=== PATIENT | male | born 1985 | race Caucasian/White ===

== ENCOUNTER 2018-01-11 17:36 | Inpatient (IN) | payer OTHER ==
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
[2018-01-11] MEDS ORDERED: IOPAMIDOL (ISOVUE-300) 100 ML BTL ONE (17:54)
[2018-01-11 17:58] LABS: PLATELET COUNT 294 10^3/uL (150-400)
[2018-01-11 18:17] LABS: INR 0.99 (0.83-1.16); PROTIME(PATIENT) 13.3 SEC (12.0-15.0)
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
[2018-01-11] MEDS ORDERED: POTASSIUM CL 20 MEQ TAB PO ONE (21:32)
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
--- NOTE | 2018-01-11 21:58 | ASMTTCLDSP ---
TLC Discharge Disposition Disposition: Answers: Admit Disposition Notes: Notes: Pt will be admitted to [facility] Unit Discharge Concerns/Recommendations: Notes: In consulation wit the FED MD, Dr Kristen Hadley an on-call psychiatrist, Dr. Estela Aleman both concurred that pt meets the 27-65 criteria requiiring in=pt psychiatric hositalization as pt appears to be at imminent risk to self harm due to a mental illness. Was patient given the Answers: Yes Inpatient [facility] Health Prohibited Belongings List while in the ED? For inpatient Dr Estela Aleman admission, the following psychiatrist agreed to accept patient for admission to [facility]): Type of Hold: Answers: M1/72-hour Hold Hold initiated by: Answers: Police Date Signed: 01/11/2018 09:57 PM Electronically Signed By:Tahira Salazar
[2018-01-12] MEDS ORDERED: LORazepam 0.5 MG TAB PO PRN (02:25)
[2018-01-12] MEDS ORDERED: NICOTINE POLACRILEX 2 MG GUM B PRN (02:25)
[2018-01-12] MEDS ORDERED: ACETAMINOPHEN 325 MG TAB PO PRN (02:25)
[2018-01-12] MEDS ORDERED: MAG HYDROX/AL HYDROX/SIMETH 30 ML UDCUP PO PRN (02:25)
[2018-01-12] MEDS ORDERED: MAGNESIUM HYDROXIDE 30 ML UDCUP PO PRN (02:25)
[2018-01-12] MEDS ORDERED: OLANZapine 5 MG TAB PO PRN (02:26)
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
--- NOTE | 2018-01-12 13:29 | PDMN ---
Medical Necessity Medical necessity: Pt meets inpt criteria per MD order and [facility], Major Depressive Disorder, Adult: Inpatient Care. 32 y/o admitted on M1 hold w/major depressive disorder w/suicide requiring inpt psychiatric hospitalization as pt appears to be at risk of harm to self due to mental illness.
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
[2018-01-13 06:55] VITALS: BP 111/68
--- NOTE | 2018-01-13 09:26 | ASMTBHDC ---
Notes Note: Notes: CC was unable to confirm follow up out-patient services: Follow up with: Client refused to have CC confirm out-patient intake appt with [facility]; noting, "he would like to make the appointment himself." Additional Resources: [facility] [address] This is for the initial 30 minute appt to do paperwork and Ct should bring ID, insurance card, etc. [place] office: [address] [place] [address] Mon, Wed, and Fri 8:30am-2pm. [place] office: [address], [place] [address] Mon. and Wed., 9 am-2 pm [place] office: [address] [facility] [address] [facility] (adults), [place] [address] Mon-Fri., 9 am-2 pm Date Signed: 01/13/2018 09:26 AM Electronically Signed By:Jose Tapia
--- NOTE | 2018-01-13 10:45 | ASMTBHDC ---
Notes Note: Notes: Pt. refused to sign YAZ for [facility], stating he wants to confirm he has Medicaid prior to setting up any follow up appointments. Pt. reports not wanting to have a large bill to add to his current financial issues. Pt. acknowledged he will need to make his follow up appointment for therapy after he discharges. Pt. reports he will return to living with his father and return to working at [employer] Pt. stated he can talk to his dad for support instead of his previous friends. Date Signed: 01/13/2018 10:45 AM Electronically Signed By:Katherine Judge
--- NOTE | 2018-01-13 12:59 | ASMTBHFAM ---
Notes Note: Notes: Family meeting with pt, FOC, AUTOMOTIVE PARTS MANAGER, CC and student staff. FOC stated both him and the family would like pt. to attend therapy. FOC stated " I can afford to pay for it [therapy]". Pt. stated he is "open to therapy", but shared some challenges with trusting others. Pt. stated "[I'm] not fully confident in professionals. I'm a skeptic for the right reasons". Pt. stated his father is his resource and support. FOC stated pt. will return home with him and pt's boss stated he can return to work tomorrow. Date Signed: 01/13/2018 12:58 PM Electronically Signed By:Katherine Judge
--- NOTE | 2018-01-13 15:30 | BDS ---
REASON FOR ADMISSION: From the ED note dated 01/11/2018, the patient attempted suicide by [place] his car [place] a mirtha. The patient was placed on an M1 hold due to being a danger to himself. The patient was admitted involuntarily on an M1 hold due to being a danger to himself. The patient was admitted for safety, crisis stabilization, and medication management. ADMITTING DIAGNOSIS: Major depressive disorder, single episode, severe. Cannabis use disorder, severe. ADMISSION PHYSICAL EXAM: The patient was seen by Dr. Bennett on 01/12/2018, for an internal medicine consultation for medical clearance for inpatient psychiatric hospitalization. Dr. Bennett reported he saw no medical contraindications to the patient's continued stay on the inpatient behavioral health unit or to any psychiatric medications or procedures. For further details, please refer to consultation note dated 01/12/2018. ADMISSION LABS: CBC showed a slightly elevated white blood cell count at 11.09. There was no left shift. There was predominantly elevations of neutrophils and monocytes. Coagulation revealed normal PT and PTT. Chemistry showed a low potassium on the 2nd determination of 3.1. Subsequently, potassium was normal the next morning at 4. Otherwise, renal function and electrolytes were within normal limits. Hemoglobin A1c was normal at 5. Lipid panel revealed a slightly high triglycerides at 160 and slightly high LDL at 102. The patient had a slightly low HDL at 39. TSH was suppressed mildly at 0.365. Toxicology screen in his serum was negative for ethyl alcohol and the urine was non-negative for marijuana. Negative for all other substances of abuse. MAJOR PROCEDURES OR TESTS: None. HOSPITAL COURSE: The most prominent symptoms and behaviors while the patient was here were mild depression and anxiety. Treatment modalities utilized were milieu and group therapy. The patient has improved considerably with no signs of psychiatric symptoms and no psychiatric symptoms expressed at time of discharge. The patient reports he has improved since admission. States to be in stable condition. Feels safe to discharge and he contracts for safety. Patient's response to treatment was good. There were no adverse or unexpected results of treatment. The patient was safe throughout his stay, active in treatment, engaged in groups, and was appropriate with staff and other patients. The patient met with treatment team prior to discharge to assess readiness to discharge and reviewed discharge plan. The treatment team consensus is the patient is in stable condition, has a safe discharge plan, and is ready to discharge today. CONDITION ON DISCHARGE: Patient is in stable condition and is no longer a danger to self or others, and is not gravely disabled due to mental illness. Patient is no longer in need of inpatient level of care, and can be safely and effectively treated within the community. The patients level of risk at time of discharge is low. MSE: The patient is casually dressed and with good hygiene , and looks stated age. Patient is sitting, posture is upright, and position is relaxed. Patient appears awake, alert, and responds appropriately and reasonably during interview. Patient is engaged, relates well to interviewer, and emotional facial expression is appropriate to situation and changes appropriately with topic. Patient is cooperative, makes comfortable eye contact , and movements are voluntary, deliberate, coordinated, and smooth and even with no inappropriate movements. Patient makes laryngeal sounds effortlessly and shares conversation appropriately; pace of conversation is appropriate, and stream of talking is fluent; articulation is clear and understandable; word choice is effortless and appropriate for education level; completes sentences, occasionally pausing to think; rate and volume are appropriate for interview and setting. Patient reports mood as euthymic. Patients affect is stable with full variable range, congruent with mood, and appropriate to speech and circumstances. Patient has linear and logical thinking, with no loose associations, tangential thought, thought blocking, concrete thinking, or any other signs of formal thought disorder. Patient denies suicidal and homicidal ideation, and denies hallucinations and delusions. Patient appears to be a reliable historian with sound judgement and good insight into current condition. Patient has no apparent dysfunction in recent or remote memory noted , and no evidence of gross cognitive dysfunction noted at any point during the interview. DISCHARGE DIAGNOSIS: Major depressive disorder, single episode, severe, PTSD, Cannabis use disorder, severe. CURRENT MEDICATIONS: No prescriptions provided at time of discharge. Patient to continue nicotine gum for nicotine dependence. Patient plans to follow-up with therapy and assess need for psychotropic medications on an outpatient basis. DISPOSITION: The patient left the hospital independently and voluntarily with his father after a family meeting with this CONTACT ACID PLANT OPERATOR and the pillowcase cutter. FOLLOWUP: coordinator mining products reports the appropriate outpatient follow-up services have been established and outpatient appointments have been scheduled. The patient received written instructions with times and dates of outpatient follow-up appointments. The following follow-up recommendations were provided to the patient at discharge: Continue psychotropic medications as prescribed and attend appointments as scheduled. Report any side effects to a psychiatric outpatient provider, a primary care provider, or other health managed care specialist. Address any questions or problems concerning the psychotropic medications with a psychiatric outpatient provider, a primary care provider, or other health managed care specialist. Contact [facility] or [facility], or go to the nearest emergency room, if you are ever a danger to yourself/others, or unable to care for yourself. As soon as possible, establish a routine medication management treatment with a psychiatric provider, establish routine therapy appointments, and follow-up with a primary care provider. SUBSTANCE ABUSE BRIEF INTERVENTION: Brief intervention regarding the risks of cannabis abuse is provided to patient with goal to reduce the risk of harm that could result from the continued use of cannabis, with the general aim to investigate the problem, raise awareness of problem, develop a solution with the patient, recommend a specific change or activity, and motivate the patient toward change. Assess substance abuse behavior and give supportive advice about harm reduction, recommend a reduction in hazardous/at-risk consumption patterns, and facilitate referrals for additional specialized treatment with direct care counselor. Intermediate goal is for the patient to quit and engage in substance abuse treatment. Intervention focus on intermediate goals to allow for more immediate success in the treatment process to keep the patient motivated. Review following with patient: Cannabis use risks: Short-term use: impaired short-term memory, impaired motor coordination, altered judgement, in high doses paranoia and psychosis. Long-term use addiction, diminished life satisfaction and achievement, symptoms of chronic bronchitis, and increased risk of chronic psychosis disorders if predisposition to such disorders. In withdrawal anger, aggression irritability, anxiety and nervousness, decreased appetite or weight loss, restlessness, and sleep difficulties with strange dreams. OUTPATIENT SUBSTANCE ABUSE TREATMENT: Patient referred to outpatient provider and treatment for continued treatment related to substance abuse. LEGAL COURSE: The patient was admitted on an M1 hold for involuntary inpatient psychiatric hospitalization. The patient discharged today independently and voluntarily. ATTITUDE AT TIME OF DISCHARGE: The patients attitude was positive at time of discharge, and patient reports looking forward to discharging today. The patient reports he feels safe to discharge, is no longer a danger to himself or others, is in stable condition, and contracts for safety. Patient states he will continue medications as prescribed, and establish medication management treatment with an outpatient provider after discharge. Patient reports he understands the information that has been provided to him, and he understands, accepts, and agrees to psychotropic medications. Patient describes internal protective factors as the coping skills he has learned while hospitalized here, and he plans to continue to practice these coping skills after discharge. Patient reports external protective factors as family. Patient describes looking forward to getting back to work after discharge. Patient describes future plans as helping others. Patient reports he has completed Safety Plan and has reviewed Safety Plan with his nurse. Patient states his family and friends look forward to him discharging. FAMILY MEETING: This CONTACT AC[employer] PLANT OPERATOR and direct care counselor met with patient and patient's father at patient's request prior to patient discharging to assess readiness to discharge and review discharge plan. Patients father reports patient has a safe discharge plan and is safe to discharge today. Patient's father reports he plans to pay for therapy sessions for patient if needed until patient is able to obtain insurance. Patient's father appears supportive and reports she plans to continue to support patient in ongoing outpatient treatment. Patient' s father reports patient will continue to live with him after discharge. PENDING LABS AND STUDIES: There were no pending labs or studies at the time of discharge. ADVANCED DIRECTIVES: There were no advance directives on file and the patient was full code during this hospitalization. SUICIDE ASSESSMENT FIVE-STEP EVALUATION AND TRIAGE (1) RISK FACTORS: (a) Suicidal behavior: overdose by pills a few years ago (b) Current/past psychiatric disorders: Major Depressive Disorder, PTSD, Cannabis Use Disorder, Severe (c) Zheng symptoms: none expressed or exhibited at time of discharge (d) Family history: none (e) Precipitants/Stressors/Interpersonal: none (f) Change in treatment: discharge from psychiatric hospital (g) Access to firearms: none (2) PROTECTIVE FACTORS: (a) Internal: coping skills learned while hospitalized (b) External: family, friends, and future (3) SUICIDAL INQUIRY: (a) Ideation: none (b) Plan: none (c) Behaviors: none; patient was safe throughout stay with no suicidal or parasuicidal behaviors (d) Intent: none (4) RISK LEVEL: Low: modifiable risk factors, strong protective factors; no suicidal or self-injurious ideation. Intervention: treatment plan to reduce symptoms including medications and therapy, provided emergency/crisis numbers, and established follow-up plan. /[id number]/MODL MTDD
--- NOTE | 2018-01-13 16:01 | BDS ---
DUPLICATE. HAS NOT BEEN EDITED/COMPLETED. PLEASE REFER TO SIGNED DISCHARGE SUMMARY THAT HAS BEEN EDITED/COMPLETED. REASON FOR ADMISSION: From the ED note dated 01/11/2018, the patient attempted to commit suicide by driving his car [place] a [place]. The patient survived, called his father, who called the police, and patient was brought to the ED by EMS. The patient was placed on an M1 hold due to being a danger to himself. The patient was admitted involuntarily on an M1 hold due to being a danger to himself. He was admitted for safety, crisis stabilization, and medication management. ADMITTING DIAGNOSES: 1. Major depressive disorder, single episode, severe. 2. Cannabis use disorder, severe, in a controlled environment. ADMISSION PHYSICAL EXAM: The patient was seen on 01/12/2018, for an Internal Medicine consultation note by Dr. Bennett, for medical clearance for inpatient Behavioral Health stay. Dr. Bennett reported he saw no medical contraindications to the patient's continued stay on the inpatient Behavioral Health unit or to any psychiatric medications or procedures. ADMISSION LABS: CBC showed a slightly elevated white blood cell count at 11.09. There was no left shift. There were predominantly elevations of neutrophils and monocytes. Coagulation revealed normal PT and PTT. Chemistry showed a low potassium on the 2nd determination of 3.1. Subsequently, potassium was normal the next morning, at 4. Otherwise renal function electrolytes were within normal limits. Hemoglobin A1c was normal at 5. Lipid panel revealed slightly elevated high triglycerides at 160 and slightly high LDL at 102. He had a slightly low HDL at 39. TSH was mildly suppressed at 0.365. Toxicology screen in the serum was negative for ethyl alcohol and in the urine was non-negative for marijuana, but negative for any other substances of abuse. MAJOR PROCEDURES OR TESTS: None. HOSPITAL COURSE: The most prominent symptoms and behaviors while the patient was here were mild anxiety and depression. The treatment modalities utilized were milieu and group therapy. The patient has improved considerably with no signs of psychiatric symptoms and no psychiatric symptoms expressed at discharge. The patient reports he has improved since admission. States to be in stable condition. Feels safe to discharge and he contracts for safety. The patient completed a safety plan prior to discharge. The patient's response to treatment was good. There were no adverse or unexpected results of treatment. The patient was safe throughout his stay, active in treatment, attended and engaged in groups, and was appropriate with staff. The patient met with the treatment team prior to discharge to assess readiness to discharge and reviewed discharge plan. The treatment team consensus is the patient is in stable condition, has a safe discharge plan, and is ready to discharge today. CONDITION AT DISCHARGE: DISCHARGE DIAGNOSIS: Major depressive disorder, severe, single episode. CURRENT MEDICATIONS: After reviewing options, risks, and benefits, the patient reports he is not interested in psychotropic medications at time of discharge. Patient to follow up for therapy and medication evaluation after discharge. DISPOSITION: Patient left hospital independently and voluntarily with his father, after a family meeting with his father. FOLLOWUP: LEGAL COURSE: The patient was admitted on an M1 hold for involuntary inpatient psychiatric hospitalization. The patient became voluntary during his stay and patient discharged today independently and voluntarily. ATTITUDE AT TIME OF DISCHARGE: LABS AND STUDIES: There were no pending labs or studies at time of discharge. ADVANCE DIRECTIVES: There were no advance directives on file and the patient was a full code during this hospitalization. /[id number]/MODL MTDD
== END 2018-01-13 13:05 | disposition home or self-care (01) | DRG 885 ==
LOC: BBEH 23:07
PROVIDERS: ADMIT Psychiatry & Neurology Behavioral Neurology & Neuropsychiatry; ATTEND Psychiatry & Neurology Behavioral Neurology & Neuropsychiatry
DX: F32.2 Major depressive disorder, single episode, severe without psychotic features (principal); F43.10 Post-traumatic stress disorder, unspecified; F12.10 Cannabis abuse, uncomplicated; F17.210 Nicotine dependence, cigarettes, uncomplicated
CPT/HCPCS: 80305; 82435-PO; 82565-PO; 82947-PO; 84132-PO; 84295-PO; 84520-PO; 85014-PO; G0480; Q9967